=== PATIENT | female | born 1975 | race African-American/Black ===

== ENCOUNTER 2016-11-12 16:35 | Emergency (ER) | payer OTHER ==
--- NOTE | ~2016-11-12 | CR142 ---
[facility] A Service of [facility] RADIOLOGY TEXT RESULTS PATIENT: BEREKET GAMBINO LOCATION: [facility] : 71 UNIT #: [id number] AGE: [address]: Alesia Rubalcava APRN SEX: F ORDER DR: [id number] [facility] [address] [place], [place] [address] [id number] E MR#: [id number] Acc #: [id number] NAME: BEREKET GAMBINO : 1975 SEX: F STUDY DATE/TIME: 11/12/2016 16:27 UNIT: [facility] ROOM: STUDY DESCRIPTION: CR Hand Min 3 Views Rt Attending Physician: Alesia Rubalcava A.P.R.N. Ordering Physician: Ed Alberto Pantoja M.D. Primary Care Physician: Abdoul Bowman M.D. MEDICAL IMAGING REPORT This report is preliminary unless electronic signature is present EXAM Right hand 3 views HISTORY Pain and swelling of the fifth digit beginning today, confusion. FINDINGS 3 views are submitted. The bony elements appear intact and in normal alignment. No fractures or radiopaque foreign bodies are identified. 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 CONCLUSION 1. Negative right hand. No acute findings 2. 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 Mack Ferguson M.D. THIS IS AN ELECTRONICALLY VERIFIED REPORT Mack Ferguson M.D. at 11/13/2016 10:35 AM RICHARD/vicky TD: 11/12/2016 22:16 JOB #: [id number] MEDICAL IMAGING REPORT Page 1 of 1 COPY
--- NOTE | ~2016-11-12 | CR282 ---
[facility] A Service of [facility] RADIOLOGY TEXT RESULTS PATIENT: BEREKET GAMBINO LOCATION: [place] : 71 UNIT #: [id number] AGE: [address]: Alesia Rubalcava APRN SEX: F ORDER DR: [id number] [facility] [address] [place], [place] [address] [id number] E MR#: [id number] Acc #: [id number] NAME: BEREKET GAMBINO : 1975 SEX: F STUDY DATE/TIME: 11/12/2016 16:28 UNIT: [facility] ROOM: STUDY DESCRIPTION: CR Wrist Min 3 View Rt Attending Physician: Alesia Rubalcava A.P.R.N. Ordering Physician: Ed Alberto Pantoja M.D. Primary Care Physician: Abdoul Bowman M.D. MEDICAL IMAGING REPORT This report is preliminary unless electronic signature is present EXAM Right wrist, total of 4 views, 11/12/2016 HISTORY SUPPLIED Pain and swelling beginning today. Confusion. FINDINGS 3 views are submitted. The exam shows foreshortening of the distal ulna with some secondary degenerative changes at the radioulnar joint. Bony elements otherwise appear intact and no fractures or foreign bodies are seen. 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 No acute findings. Dictated by... Mack Ferguson M.D. THIS IS AN ELECTRONICALLY VERIFIED REPORT Mack Ferguson M.D. at 11/13/2016 10:35 AM Estrella TD: 11/12/2016 22:12 JOB #: [id number] MEDICAL IMAGING REPORT Page 1 of 1 COPY
[~2016-11-12 16:35] MED LIST: BENTYL20 MG PO; CLEOCIN PO; CLINDAMYCIN HC300 MG PO; COLACE PO; CYTOTEC PO; FLEXERIL PO; GOLYTELY SOLU4000 ML PO; KETOPROFEN PO; LORTAB 5/500 TA1 TA1 PO; LORTAB 7.5-5001 TAB PO; MEDROL PO; MILK OF MAGNESIA PO; NAPROXEN500 M1 PO; ORUDIS75 M1 PO; TRAMADOL HCL50 M2 PO; TYLENOL #3 PO; ULTRAM PO; VICODIN 5/500 T1 TAB PO
== END 2016-11-12 17:40 | disposition home or self-care (01) ==
LOC: CFTX 16:35
DX: S60.211A Contusion of right wrist, initial encounter (principal); Z88.2 Allergy status to sulfonamides; W22.8XXA Striking against or struck by other objects, initial encounter; Y92.69 Other specified industrial and construction area as the place of occurrence of the external cause; Y99.0 Civilian activity done for income or pay
CPT/HCPCS: 29125; 73110; 73130; 99283

== ENCOUNTER 2017-01-06 20:37 | Emergency (ER) | payer OTHER, BC ==
--- NOTE | ~2017-01-06 | CT4 ---
[facility] A Service of [facility] RADIOLOGY TEXT RESULTS PATIENT: BEREKET GAMBINO LOCATION: [facility] : 71 UNIT #: [id number] AGE: [address]: Ambrosio Keene MD SEX: F ORDER DR: [id number] [facility] [address] [place], [place] [address] [id number] E MR#: [id number] Acc #: [id number] NAME: BEREKET GAMBINO : 1975 SEX: F STUDY DATE/TIME: 01/06/2017 23:21 UNIT: [facility] ROOM: STUDY DESCRIPTION: CT Abd and Pelv Wo Cont Attending Physician: Ambrosio Keene M.D. Ordering Physician: Ambrosio Keene M.D. Primary Care Physician: Abdoul Bowman M.D. MEDICAL IMAGING REPORT This report is preliminary unless electronic signature is present EXAM Abdomen and pelvis CT 01/06/2017 at 23:21 INDICATIONS Right flank pain for the last 4 days with nausea. Pain rates 7 out of 10. TECHNIQUE Axial images were obtained through the abdomen and pelvis without contrast. Multiplanar reformats were obtained. Comparison is made with 04/06/2012. This CT exam was performed with one or more of the following radiation dose reduction techniques: automatic exposure control, adjustment of mA and/or kV according to patient size, and iterative reconstruction. FINDINGS ABDOMEN: Gallbladder surgically absent. No renal or ureteral stones. No hydronephrosis. The unenhanced solid organs are normal. Unopacified GI tract is normal. Pelvis: There are no lower ureteral stones. The bladder is normal. Uterus is surgically absent. The appendix is normal. The remainder of the unopacified GI tract is normal as well. There is no free fluid. IMPRESSION 1. No acute findings in the abdomen or pelvis. 2. No renal or ureteral stones. No hydronephrosis. 3. Normal unopacified GI tract, including the appendix. 4. Status post cholecystectomy and hysterectomy. Dictated by... [facility] A Service of [facility] RADIOLOGY TEXT RESULTS PATIENT: BEREKET GAMBINO LOCATION: [facility] : 71 UNIT #: [id number] AGE: [address]: Ambrosio Keene MD SEX: F ORDER DR: Denny Alexis Jr., M.D. THIS IS AN ELECTRONICALLY VERIFIED REPORT Denny Alexis Jr., M.D. at 01/07/2017 5:54 AM CARMEN/homar TD: 01/07/2017 00:30 JOB #: [id number] MEDICAL IMAGING REPORT Page 1 of 1 COPY
[2017-01-06 21:47] LABS: URINE SOURCE CLEAN CATCH
[2017-01-06 21:50] LABS: BASOPHIL% 0.6 % (0-2.5); EOSINOPHIL# 0.1 X10e3 (0-0.7); EOSINOPHIL% 1.5 % (0.0-7.0); HEMATOCRIT 40.2 % (35.0-45.0); HEMOGLOBIN 13.3 gm/dL (12.0-16.0); LYMPHOCYTE# 2.6 X10e3 (1.0-3.5); LYMPHOCYTE% 46.4 % (17.0-45.0); MEAN CELL VOLUME 87.8 FL (83-96); MEAN CORPUSCULAR HEMOGLOBIN 29.2 PG (28-34); MEAN CORPUSCULAR HGB CONC 33.2 g/dL (30-36); MONOCYTE# 0.5 X10e3 (0-1.0); MONOCYTE% 9.4 % (3.0-12.0); NEUTROPHIL# 2.4 X10e3 (1.5-7.1); NEUTROPHIL% 42.1 % (40-75); PLATELET COUNT 268 X10e3 (140-420); RED BLOOD COUNT 4.57 X10e (3.90-5.30); RED CELL DISTRIBUTION WIDTH 13.1 % (11.0-15.5); WHITE BLOOD COUNT 5.6 X10e3 (4.0-10.5)
[2017-01-06 21:51] LABS: URINE APPEARANCE CLEAR; URINE BILIRUBIN NEG (NEG); URINE BLOOD NEG (NEG); URINE COLOR YELLOW; URINE GLUCOSE NEG (NEG); URINE KETONE TRACE (NEG); URINE LEUKOCYTE ESTERASE NEG (NEG); URINE NITRATE NEG (NEG); URINE PROTEIN NEG (NEG); URINE SPECIFIC GRAVITY 1.026 (1.003-1.035)
[2017-01-06 21:51] LABS: DIFF IND NO
[2017-01-06 22:03] LABS: CULTURE INDICATED? NO
[2017-01-06 22:28] LABS: ALBUMIN SERUM 4.1 g/dL (3.5-5.0); BILIRUBIN, DIRECT 0.1 mg/dL (0.0-0.2); BILIRUBIN,INDIRECT 0.3 mg/dL (0.0-0.9); BILIRUBIN,TOTAL 0.4 mg/dL (0.2-2.0); BUN/CREATININE RATIO 12.72; CREATININE SERUM 1.1 mg/dL (0.6-1.4); GLOM FILT RATE Estimated 71.2 mL/min (>60); POTASSIUM 3.3 mmol/L (3.5-5.1); PROTEIN TOTAL SERUM 7.2 g/dL (6.0-8.3)
== END 2017-01-07 00:50 | disposition home or self-care (01) ==
LOC: CED 20:37
PROVIDERS: Emergency Medicine
DX: R10.9 Unspecified abdominal pain (principal); K21.9 Gastro-esophageal reflux disease without esophagitis; Z90.49 Acquired absence of other specified parts of digestive tract; Z90.710 Acquired absence of both cervix and uterus; Z88.2 Allergy status to sulfonamides
CPT/HCPCS: 74176; 80048; 80076; 81003; 85025; 99284